=== PATIENT | male | born 1960 | race Two or more races ===

== ENCOUNTER 2024-09-27 14:35 | Inpatient (IN) | payer OTHER ==
[~2024-09-27] VITALS: Ht 172.7 cm; Wt 86.4 kg
[2024-09-27] MEDS: SODIUM CHLORIDE 0.9% 2,000 ML IV ONE (15:49)
--- NOTE | 2024-09-27 15:52 | DVH ---
EXAM: XY CHEST PORTABLE HISTORY: hypergly COMPARISON: None TECHNIQUE: Portable AP view of the chest was performed. FINDINGS: There is platelike atelectasis versus scarring in the left mid lung laterally. No other infiltrates, pneumothorax, or pulmonary edema. The heart is not enlarged. The aortic arch is calcific. There is mild thoracic degenerative disc disease. IMPRESSION: 1. No acute intrathoracic process. 2. Atherosclerotic vascular disease.
[2024-09-27 15:53] LABS: Base Excess -0.6 mmol/L (-2.0-3.0)
--- NOTE | 2024-09-27 15:57 | ED.PDOC ---
History of present illness HPI Comments 64Y M with PMHx DM and HLD presents to ED for chief complaint weakness x1day with nausea. Pt denies chest pain, SOB, vomiting, and diarrhea. Pt states he has never been prescribed insulin and has not taken his oral diabetes medications which include Metformin and glimepiride for approximately 1 year. BS upon ED arrival 500. No other symptoms reported. Chief Complaint: Hyperglycemia Time Seen by MD: 15:40 History of present illness: Nurses Notes, Medications, Allergies Allergies: Coded Allergies: NO KNOWN ALLERGIES (Unverified , 09/27/24) Information Source: Patient Mode of Arrival: Ambulatory Timing: Days Duration: Since onset Prehospital treatment: None [place]: Other Symptoms: Gen. weakness R side, Gen. weakness L side History of: Diabetes, Frequent hyperglycemic Modifying factors: Nothing Associated signs and symptoms: Other Past Medical History PAST MEDICAL HISTORY: DM, High Lipids Surgical History: Denies all surgeries Family History Family History: Unknown Social History Smoker: Non-Smoker Alcohol: Denies ETOH Use Drugs: Denies Drug Use Lives In: Home Constitutional: reports: weakness; denies: chills, diaphoresis, fatigue, fever, malaise, sweats, others EENTM: denies: blurred vision, double vision, ear bleeding, ear discharge, ear drainage, ear pain, ear ringing, eye pain, eye redness, hearing loss, mouth pain, mouth swelling, nasal discharge, nose bleeding, nose congestion, nose pain, photophobia, tearing, throat pain, throat swelling, voice changes, others Respiratory: denies: cough, hemoptysis, orthopnea, SOB at rest, shortness of breath, SOB with excertion, stridor, wheezing, others Cardiovascular: denies: chest pain, dizzy spells, diaphoresis, Dyspnea on exertion, edema, irregular heart beat, left arm pain, lightheadedness, palpitations, PND, syncope, others Gastrointestinal: reports: nausea; denies: abdomen distended, abdominal pain, blood streaked bowels, constipated, diarrhea, dysphagia, difficulty swallowing, hematemesis, melena, poor appetite, poor fluid intake, rectal bleeding, rectal pain, vomiting, others Genitourinary: denies: burning, dysuria, flank pain, frequency, hematuria, incontinence, penile discharge, penile sore, pain, testicle pain, testicle swelling, urgency, others Neurological: denies: dizziness, fainting, headache, left sided numbness, left sided weakness, numbness, paresthesia, pre-existing deficit, right sided numbness, right sided weakness, seizure, speech problems, tingling, tremors, weakness, others Musculoskeletal: denies: back pain, gout, joint pain, joint swelling, muscle pain, muscle stiffness, neck pain, others Integumetry: denies: bruises, change in color, change in hair/nails, dryness, laceration, lesions, lumps, rash, wounds, others Allergic/Immunocompromised: denies: Difficulty Healing, Frequent Infections, Hives, Itching, others Hematologic/Lymphatic: denies: anemia, blood clots, easy bleeding, easy bruising, swollen glands, others Endocrine: denies: excessive hunger, excessive sweating, excessive thirst, excessive urination, flushing, intolerance to cold, intolerance to heat, unex plained weight gain, unexplained weight loss, others Psychiatric: denies: anxiety, bipolar disorder, depression, hopeless, panic disorder, schizophrenia, sleepless, suicidal, others All Other Systems: Reviewed and Negative Physical Exam General Appearance: No Apparent Distress HEENT: Other (Pupils And face symmetric. Moist mucous membranes.) Neck: Full Range of Motion, Normal Inspection Respiratory: Lungs Clear, No Accessory Muscle Use, No Respiratory Distress, Normal Breath Sounds Cardiovascular: No Edema, No JVD, Regular Rate/Rhythm Breast Exam: Deferred Gastrointestinal: Non Tender, Soft Genitalia: Deferred Pelvic: Deferred Rectal: Deferred Extremities: Normal inspection, Normal range of motion, Non-tender, No pedal edema Neurologic: Alert (Oriented x4), Normal Affect, Normal Mood, Other (Ambulatory. No gross focal deficit.) Cerebellar Function: NOT DONE Reflexes: NOT DONE Skin: Dry, Normal Color, Warm Lymphatic: NOT DONE Was a procedure done? Was a procedure done?: No Differential Diagnosis (DM) Differential Diagnosis: DKA, Electrolyte Abnormality, Hyperglycemia, Hyperosmolar State, UTI X-Ray, Labs, Meds, VS Vital Signs Date Time Temp Pulse Resp B/P (MAP) Pulse Ox O2 Delivery O2 Flow Rate FiO2 09/27/24 15:55 98.0 92 17 138/92 (107) 97 98.0 09/27/24 15:55 92 17 97 Room Air 09/27/24 14:57 98.1 90 16 123/84 (97) 96 Lab Test 09/27/24 18:19 09/27/24 17:37 09/27/24 16:05 09/27/24 15:49 Range/Units Lactic Acid Level 1.6 2.3 *H 0.4-2.0 mmol/L Troponin I High Sensitivity < 3 L < 3 L </=54 ng/L Urine Color Light-yellow Yellow Urine Clarity Clear Clear Urine pH 5.0 5.0-9.0 Urine Specific [place] 1.037 H 1.001-1.035 Urine Protein Negative Negative Urine Ketones Negative Negative Urine Blood Negative Negative /uL Urine Nitrite Negative Negative Urine Bilirubin Negative Negative Urine Urobilinogen Normal Negative mg/dL Urine Leukocyte Esterase Negative Negative /uL Urine RBC <1 0 - 3 /hpf Urine Microscopic WBC < 1 0-3 /HPF Urine Squamous Epithelial Cells Few <5 /hpf Urine Bacteria None seen None Seen /hpf Urine Glucose 4+ H Normal mg/dL White Blood Count 7.2 4.4-10.8 10^3/uL Red Blood Count 5.98 H 4.5-5.90 10^6/uL Hemoglobin 17.2 13.5-17.5 g/dL Hematocrit 50.8 41.0-53.0 % Mean Corpuscular Volume 84.9 80.0-100.0 fL Mean Corpuscular Hemoglobin 28.7 28.0-32.0 pg Mean Corpuscular Hemoglobin Concent 33.8 32.0-36.0 g/dL Red Cell Distribution Width 14.0 11.8-14.3 % Platelet Count 244 140-450 10^3/uL Mean Platelet Volume 7.7 6.9-10.8 fL Neutrophils (%) (Auto) 76.7 37.0-80.0 % Lymphocytes (%) (Auto) 17.2 10.0-50.0 % Monocytes (%) (Auto) 4.0 0.0-12.0 % Eosinophils (%) (Auto) 1.5 0.0-7.0 % Basophils (%) (Auto) 0.6 0.0-2.0 % Neutrophils # (Auto) 5.5 1.6-8.6 10 ^3/uL Lymphocytes # (Auto) 1.2 0.4-5.4 10 ^3/uL Monocytes # (Auto) 0.3 0-1.3 10 ^3/uL Eosinophils # (Auto) 0.1 0-0.8 10 ^3/uL Basophils # (Auto) 0 0-0.2 10 ^3/uL Nucleated Red Blood Cells 0.1 % Sodium Level 132 L 136-145 mmol/L Potassium Level 5.0 3.5-5.1 mmol/L Chloride Level 96 L 98-107 mmol/L Carbon Dioxide Level 24 20-31 mmol/L Anion Gap 12 5-15 Blood Urea Nitrogen 22 9-23 mg/dL Creatinine 1.25 0.700-1.30 mg/dL Glomerular Filtration Rate Calc 64 >90 mL/min BUN/Creatinine Ratio 17.6 10.0-20.0 Serum Glucose 497 *H 74-106 mg/dL Calcium Level 10.3 8.7-10.4 mg/dL Total Bilirubin 0.5 0.2-1.0 mg/dL Aspartate Amino Transferase (AST) 14 13-40 U/L Alanine Aminotransferase (ALT) 18 7-40 U/L Alkaline Phosphatase 109 46-116 U/L B-Type Natriuretic Peptide 37.25 0-100 pg/mL Total Protein 7.3 5.7-8.2 g/dL Albumin 4.7 3.2-4.8 g/dL Beta-Hydroxybutyric Acid 0.185 < 0.4 mmol/L Test 09/27/24 15:48 09/27/24 15:41 09/27/24 15:12 09/27/24 15:10 Range/Units Blood Gas Specimen Type Arterial Blood Gas Sample Site Right radial Blood Gas Patient Temperature 37.0 Arterial Blood Date Drawn [id number] Arterial Blood pH 7.453 H 7.350-7.450 Arterial Blood Partial Pressure CO2 32.6 L 35.0-48.0 mmHg Arterial Blood Partial Pressure O2 85.1 83.0-108.0 mmHg Arterial Blood HCO3 22.3 21.0-28.0 mmol/L Arterial Blood Oxygen Saturation 96.8 94.0-98.0 % Arterial Blood Base Excess -0.6 -2.0-3.0 mmol/L Arterial Blood Oxyhemoglobin 95.7 94.0-98.0 % Arterial Blood Carboxyhemoglobin 0.7 0.5-1.5 % Arterial Blood Methemoglobin 0.4 0.0-1.5 % Florentin Test Yes Blood Gas Total Hemoglobin 17.50 13.5-17.5 g/dL Blood Gas Modality Room air FiO2 % 21.0 POC Glucose 488 *H 495 *H 500 *H 70-106 mg/dl Current Medications Medications (Trade) Dose Ordered Sig/Liliana Route Start Time Stop Time Status Last Admin Sodium Chloride 2,000 ml @ 1,000 mls/hr Q2H ONCE IV 09/27/24 15:30 09/27/24 17:29 DC 09/27/24 15:49 Insulin Human Regular (InsuLIN R) 10 units ONCE ONCE IV 09/27/24 15:30 09/27/24 15:33 DC 09/27/24 15:58 ORDERING PHYSICIAN: HIMA FLORES MD PROCEDURE(s): CXRP - CHEST PORTABLE REASON: hypergly ORDER NUMBER(s): [id number], ACCESSION NUMBER(s): [id number] EXAM: XY CHEST PORTABLE HISTORY: hypergly COMPARISON: None TECHNIQUE: Portable AP view of the chest was performed. FINDINGS: There is platelike atelectasis versus scarring in the left mid lung laterally. N o other infiltrates, pneumothorax, or pulmonary edema. The heart is not enlarged. The aortic arch is calcific. There is mild thoracic degenerative disc disease. IMPRESSION: 1. No acute intrathoracic process. 2. Atherosclerotic vascular disease. X-Ray, Labs, Meds, VS Comment 64-year-old male with a history of diabetes and dyslipidemia, noncompliant with diabetes medications for over a year, presenting with nausea, generalized weakness, and found to have elevated blood glucose Vitals remarkable for BP 138/92 Exam unremarkable Rhythm strip independently interpreted by me: Sinus rhythm, rate 90, no ectopy. Chest x-ray IMPRESSION: 1. No acute intrathoracic process. 2. Atherosclerotic vascular disease. CBC unremarkable, metabolic panel remarkable for sodium 132, chloride 96, glucose 497, lactate 2.3, down to 1.6 on repeat, troponin negative x2, beta hydroxybutyrate normal, ABG unremarkable Patient treated with the following in the ED: 1 L 0.9 normal saline IV bolus, regular insulin 10 units IV On re-evaluation, blood glucose is still elevated. Patient has no new exam changes and appears comfortable. Plan is to admit the patient for glucose control. Time of 1ST Reevaluation: 16:10 Reevaluation 1ST: Unchanged Patient Education/Counseling: Diagnosis, Treatment Family Education/Counseling: No Family Present Departure 1 Departure Time of Disposition: 21:00 Impression: Primary Impression: Hyperglycemia due to diabetes mellitus Disposition: ADMITTED INPATIENT Admit to: Med Surg Condition: Guarded Critical Care Note Critical Care Time?: No Stability Stability form required: No Heart Score Heart Score: Heart Score Response (Comments) Value History N/A 0 EKG N/A 0 Age N/A 0 Risk Factors N/A 0 Troponin N/A 0 Total 0 I personally scribed for HIMA FLORES MD ([email or web address]) on 09/27/24 at 15:57. Electronically submitted by Elizabeth Chaparro ([employer]). I personally scribed for HIMA FLORES MD ([email or web address]) on 09/27/24 at 15:57. Electronically submitted by Elizabeth Chaparro ([employer]). HIMA FLORES MD Sep 27, 2024 15:57
[2024-09-27] MEDS: InsuLIN REG 1unit/0.01ml Soln (100units/ml) IV ONE (15:58)
[2024-09-27 16:13] LABS: Basophils # (auto) 0 10 ^3/uL (0-0.2); Basophils % (auto) 0.6 % (0.0-2.0); Eosinophils # (auto) 0.1 10 ^3/uL (0-0.8); Eosinophils % (auto) 1.5 % (0.0-7.0); Hematocrit 50.8 % (41.0-53.0); Hemoglobin 17.2 g/dL (13.5-17.5); Lymphocytes # (auto) 1.2 10 ^3/uL (0.4-5.4); Lymphocytes % (auto) 17.2 % (10.0-50.0); Mean Corpuscular Hemoglobin 28.7 pg (28.0-32.0); Mean Corpuscular Hgb Conc. 33.8 g/dL (32.0-36.0); Mean Corpuscular Volume 84.9 fL (80.0-100.0); Monocytes # (auto) 0.3 10 ^3/uL (0-1.3); Neutrophils # (auto) 5.5 10 ^3/uL (1.6-8.6); Neutrophils % (auto) 76.7 % (37.0-80.0); Nucleated Red Blood Cells % 0.1 %; Platelet Count (auto) 244 10^3/uL (140-450); Red Blood Cells 5.98 10^6/uL (4.5-5.90); White Blood Cell 7.2 10^3/uL (4.4-10.8)
[2024-09-27 16:28] LABS: Alanine Aminotransferase 18 U/L (7-40); Albumin 4.7 g/dL (3.2-4.8); Alkaline Phosphatase 109 U/L (46-116); Anion Gap 12 (5-15); Aspartate Aminotransferase 14 U/L (13-40); BUN/Creatinine Ratio 17.6 (10.0-20.0); Blood Urea Nitrogen 22 mg/dL (9-23); Calcium 10.3 mg/dL (8.7-10.4); Carbon Dioxide 24 mmol/L (20-31); Total Protein 7.3 g/dL (5.7-8.2)
[2024-09-27 16:29] LABS: Bilirubin, Total 0.5 mg/dL (0.2-1.0)
[2024-09-27 16:30] LABS: Chloride 96 mmol/L (98-107); Sodium 132 mmol/L (136-145)
[2024-09-27 16:31] LABS: Glucose 497 mg/dL (74-106); Lactic Acid w/Reflex 2.3 mmol/L (0.4-2.0)
[2024-09-27 17:03] LABS: Urine Bacteria None Seen /hpf (None Seen)
[2024-09-27 17:19] LABS: Urine Blood Negative /uL (Negative); Urine Clarity Clear (Clear); Urine Color Light-Yellow (Yellow); Urine Protein, UAD Negative (Negative); Urine Specific Gravity 1.037 (1.001-1.035); Urine Squamous Epithelial Cell FEW /hpf (<5); Urine Urobilinogen Normal (Negative); Urine WBC < 1 /HPF (0-3)
[2024-09-27] MEDS ORDERED: ACETAMINOPHEN 325 MG TAB PO PRN (22:00)
[2024-09-27] MEDS ORDERED: SODIUM CHLORIDE 0.9% 1,000 ML IV SCH (22:00)
[2024-09-27] MEDS ORDERED: DEXTROSE (50%) 50ML SYRG IV PRN (22:00)
[2024-09-27] MEDS ORDERED: DOCUSATE SOD 100 MG CAP PO PRN (22:00)
[2024-09-27] MEDS ORDERED: HYDROcodone-ACET 5/325MG TAB PO PRN (22:00)
[2024-09-27] MEDS ORDERED: ONDANSETRON HCL 4 MG/2 ML VIAL IV PRN (22:00)
[2024-09-27] MEDS: ATORVASTATIN 20 MG TAB PO SCH (22:16)
[2024-09-27] MEDS ORDERED: NITROGLYCERIN 0.4 MG SL TAB SL PRN (22:30)
[2024-09-27] MEDS ORDERED: MORPHINE SULFATE INJ 2 MG/ml SYRG IV PRN (22:30)
--- NOTE | 2024-09-27 22:36 | DVHHP2 ---
History of Present Illness Reason for Visit: Hyperglycemia due to diabetes mellitus History of Present Illness The patient is a 64-year-old male with past medical history of hypertension, hyperlipidemia, and DM who presented to [facility] ED with complaint of generalized weakness. Patient reports symptoms has been persistent for the past 1 day associated with nausea. Patient was seen and evaluated in the ED, laboratory data shows WBC 7.2, platelets 244, sodium 132, potassium 5.0, BUN 22, creatinine 1.25, GFR 64, glucose 500, BNP 37.25, troponin 3, lactic acid 1.6, blood pressure 138/92, heart rate 92, temperature 98.0 F, O2 saturation 97% on room air. Chest x-ray show no acute intrathoracic process. Patient was given regular insulin 10 units IV x1, please see medication orders section in the computer. On my assessment, patient denies chest pain, no headache, no dizziness, no diaphoresis, no blurry vision, no shortness of breaths, no nausea, no vomiting, no fever, no chills. Patient was admitted for further evaluation and medical management. Past Medical History DM, High Lipids, HTN Past Surgical History Denies all surgeries Family History Reviewed, noncontributory to the management of this case. Past Social History The patient lives at home, denies smoking, alcohol or illicit drugs abuse. Review of Systems Constitutional: Yes: Weakness; No: Fever, Chills, Sweats, Malaise, Other Eyes: No: Pain, Vision change, Conjunctivae inflammation, Eyelid inflammation, Other, Redness ENT: No: Ear pain, Ear discharge, Nose pain, Nose discharge, Nose congestion, Mouth pain, Mouth swelling, Throat pain, Throat swelling, Other Respiratory: No: Cough, Dry, Shortness of breath, SOB with excertion, Wheezing, Hemoptysis, Pleuritic Pain, Sputum, Wheezing, Other Cardiovascular: No: Chest Pain, Palpitations, Orthopnea, Paroxysmal Noc. Dyspnea, Edema, Lt Headedness, Other Gastrointestinal: No: Nausea, Vomiting, Abdominal Pain, Diarrhea, Constipation, Melena, Hematochezia, Other Genitourinary: No Dysuria, No Frequency, No Incontinence, No Hematuria, No Retention, No Other Musculoskeletal: No: other, neck pain, shoulder pain, arm pain, back pain, hand pain, leg pain, foot pain Skin: No: Rash, Lesions, Jaundice, Bruising, Other Neurological: No: Weakness, Numbness, Incoordination, Change in speech, Confusion, Seizures, Other Allergies: Coded Allergies: NO KNOWN ALLERGIES (Unverified , 09/27/24) Medications Current Medications Medications Dose Ordered Sig/Liliana Route Start Time Stop Time Status Last Admin Dose Admin Hydralazine HCl 10 mg Q6HP PRN IV 09/27/24 22:00 Atorvastatin Calcium 10 mg HS PO 09/27/24 22:00 09/27/24 22:16 10 MG Aspirin 81 mg DAILY PO 09/28/24 10:00 Diagnostic Test (Pha) 1 strip IQ4HR 09/28/24 00:00 Insulin Human Regular IQ4HR SC 09/28/24 00:00 Dextrose 50 ml UD PRN IV 09/27/24 22:00 Acetaminophen/ Hydrocodone Bitart 1 tab Q4HP PRN PO 09/27/24 22:00 Ondansetron HCl 4 mg Q4HP PRN IV 09/27/24 22:00 Docusate Sodium 100 mg BIDPRN PRN PO 09/27/24 22:00 Acetaminophen 650 mg Q6HP PRN PO 09/27/24 22:00 Sodium Chloride 1,000 ml @ 120 mls/hr Q8H20M IV 09/27/24 22:15 Exam Vital Signs Vital Signs Date Time Temp Pulse Resp B/P (MAP) Pulse Ox O2 Delivery O2 Flow Rate FiO2 09/27/24 15:55 98.0 92 17 138/92 (107) 97 98.0 09/27/24 15:55 Room Air General Appearance: Alert, Oriented X3, Cooperative, No acute distress HEENT: Atraumatic, PERRLA, EOMI, Mucous membr. moist/pink Respiratory: Clear to auscultation, Normal air movement Cardiovascular: Regular rate, Normal S1, Normal S2, No murmurs Abdominal: Normal bowel sounds, Soft, No tenderness, No hepatospenomegaly, No masses Extremities: No clubbing, No cyanosis, No edema, Normal pulses, No tenderness/swelling Skin: No rashes, No breakdown, No significant lesion Neuro: Normal speech, Normal tone, Sensation intact, Cranial nerves 3-12 NL, Reflexes 2+, Other (Generalized weakness) Psych/Mental Status: Mental status NL, Mood NL Labs/Xrays Labs Test 09/27/24 22:18 09/27/24 18:19 09/27/24 17:37 09/27/24 16:05 Range/Units Lactic Acid Level 1.6 0.4-2.0 mmol/L Troponin I High Sensitivity < 3 L </=54 ng/L Urine Color Light-yellow Yellow Urine Clarity Clear Clear Urine pH 5.0 5.0-9.0 Urine Specific [place] 1.037 H 1.001-1.035 Urine Protein Negative Negative Urine Ketones Negative Negative Urine Blood Negative Negative /uL Urine Nitrite Negative Negative Urine Bilirubin Negative Negative Urine Urobilinogen Normal Negative mg/dL Urine Leukocyte Esterase Negative Negative /uL Urine RBC <1 0 - 3 /hpf Urine Microscopic WBC < 1 0-3 /HPF Urine Squamous Epithelial Cells Few <5 /hpf Urine Bacteria None seen None Seen /hpf Urine Glucose 4+ H Normal mg/dL Test 09/27/24 15:49 09/27/24 15:48 09/27/24 15:41 Range/Units White Blood Count 7.2 4.4-10.8 10^3/uL Red Blood Count 5.98 H 4.5-5.90 10^6/uL Hemoglobin 17.2 13.5-17.5 g/dL Hematocrit 50.8 41.0-53.0 % Mean Corpuscular Volume 84.9 80.0-100.0 fL Mean Corpuscular Hemoglobin 28.7 28.0-32.0 pg Mean Corpuscular Hemoglobin Concent 33.8 32.0-36.0 g/dL Red Cell Distribution Width 14.0 11.8-14.3 % Platelet Count 244 140-450 10^3/uL Mean Platelet Volume 7.7 6.9-10.8 fL Neutrophils (%) (Auto) 76.7 37.0-80.0 % Lymphocytes (%) (Auto) 17.2 10.0-50.0 % Monocytes (%) (Auto) 4.0 0.0-12.0 % Eosinophils (%) (Auto) 1.5 0.0-7.0 % Basophils (%) (Auto) 0.6 0.0-2.0 % Neutrophils # (Auto) 5.5 1.6-8.6 10 ^3/uL Lymphocytes # (Auto) 1.2 0.4-5.4 10 ^3/uL Monocytes # (Auto) 0.3 0-1.3 10 ^3/uL Eosinophils # (Auto) 0.1 0-0.8 10 ^3/uL Basophils # (Auto) 0 0-0.2 10 ^3/uL Nucleated Red Blood Cells 0.1 % Sodium Level 132 L 136-145 mmol/L Potassium Level 5.0 3.5-5.1 mmol/L Chloride Level 96 L 98-107 mmol/L Carbon Dioxide Level 24 20-31 mmol/L Anion Gap 12 5-15 Blood Urea Nitrogen 22 9-23 mg/dL Creatinine 1.25 0.700-1.30 mg/dL Glomerular Filtration Rate Calc 64 >90 mL/min BUN/Creatinine Ratio 17.6 10.0-20.0 Serum Glucose 497 *H 74-106 mg/dL Calcium Level 10.3 8.7-10.4 mg/dL Total Bilirubin 0.5 0.2-1.0 mg/dL Aspartate Amino Transferase (AST) 14 13-40 U/L Alanine Aminotransferase (ALT) 18 7-40 U/L Alkaline Phosphatase 109 46-116 U/L B-Type Natriuretic Peptide 37.25 0-100 pg/mL Total Protein 7.3 5.7-8.2 g/dL Albumin 4.7 3.2-4.8 g/dL Beta-Hydroxybutyric Acid 0.185 < 0.4 mmol/L Blood Gas Specimen Type Arterial Blood Gas Sample Site Right radial Blood Gas Patient Temperature 37.0 Arterial Blood Date Drawn [id number] Arterial Blood pH 7.453 H 7.350-7.450 Arterial Blood Partial Pressure CO2 32.6 L 35.0-48.0 mmHg Arterial Blood Partial Pressure O2 85.1 83.0-108.0 mmHg Arterial Blood HCO3 22.3 21.0-28.0 mmol/L Arterial Blood Oxygen Saturation 96.8 94.0-98.0 % Arterial Blood Base Excess -0.6 -2.0-3.0 mmol/L Arterial Blood Oxyhemoglobin 95.7 94.0-98.0 % Arterial Blood Carboxyhemoglobin 0.7 0.5-1.5 % Arterial Blood Methemoglobin 0.4 0.0-1.5 % Florentin Test Yes Blood Gas Total Hemoglobin 17.50 13.5-17.5 g/dL Blood Gas Modality Room air FiO2 % 21.0 POC Glucose 488 *H 70-106 mg/dl PATIENT: JIMMIE RENTERIA ACCT: [id number] UNIT: [id number] : 1960 LOC: ER ROOM / BED: / AGE / SEX: 64 / M ADM STATUS: REG ER SERVICE 1530 ORDERING PHYSICIAN: HIMA FLORES MD PROCEDURE(s): CXRP - CHEST PORTABLE REASON: hypergly ORDER NUMBER(s): [id number], ACCESSION NUMBER(s): [id number] EXAM: XY CHEST PORTABLE HISTORY: hypergly COMPARISON: None TECHNIQUE: Portable AP view of the chest was performed. FINDINGS: There is platelike atelectasis versus scarring in the left mid lung laterally. No other infiltrates, pneumothorax, or pulmonary edema. The heart is not enlarged. The aortic arch is calcific. There is mild thoracic degenerative disc disease. IMPRESSION: 1. No acute intrathoracic process. 2. Atherosclerotic vascular disease. Assessment/Plan Assessment/Plan Generalized weakness Hyponatremia Hyperglycemia due to diabetes mellitus Plan 1. Admit to telemetry unit 2. Breathing treatment 3. Pain control management 4. Management of fluids and electrolytes 5. Consultation for hospitalist 6. Diagnostic tests chest x-ray 7. DVT prophylaxis on SCDs 8. Repeat labs CBC, CMP in a.m. 9. Continue with current medical management 10. Treatment plan discussed with patient and RN. Patient verbalized understanding. Plan discussed with: Patient, Other (RN) My Orders Orders - SANJU FLYNN DNP Procedure Category Date Status Time Consistent DIET 09/28/24 Transmitted Carb(Ccho)Diabetes Breakfast Hydralazine Injection PHA 09/27/24 In Process (Apresoline Inject 22:00 Atorvastatin (Lipitor) PHA 09/27/24 In Process 22:00 Aspirin Tablet PHA 09/28/24 In Process 10:00 Glucose Blood PHA 09/28/24 In Process (Accu-Chek Comfort 00:00 Insulin R (Human) PHA 09/28/24 In Process (Insulin R) 00:00 Dextrose 50% Syringe PHA 09/27/24 In Process 22:00 Allergies SARAH 09/27/24 In Process 21:54 Code Status CODE 09/27/24 Transmitted 21:54 Oxygen Per Hour RT 09/27/24 Transmitted 21:54 Hydrocodone-Acet PHA 09/27/24 In Process 5/325mg Tab (Kirwin 22:00 Ondansetron Hcl PHA 09/27/24 In Process (Zofran) 22:00 Docusate Sodium PHA 09/27/24 In Process Capsule (Colace 22:00 Complete Blood Count LAB 09/28/24 Verified 04:00 Comprehensive LAB 09/28/24 Verified Metabolic Panel 04:00 Condition: Serious SARAH 09/27/24 In Process 21:54 Acetaminophen Tablet PHA 09/27/24 In Process (Tylenol Tablet) 22:00 Bedrest With Bathroom SARAH 09/27/24 In Process Privileg 21:54 Sequential SARAH 09/27/24 In Process Compression Device Hemoglobin A1c LAB 09/27/24 Logged 22:06 Sodium Chloride 0.9% PHA 09/27/24 In Process 22:15 Problem List: (1) Generalized weakness (2) Hyponatremia (3) Hyperglycemia due to diabetes mellitus Date of Service: Sep 27, 2024 Billing Provider: SANJU FLYNN DNP Common Visit Codes: [id number] INP/OBS CARE (HIGH) SANJU FLYNN DNP Sep 27, 2024 22:36
[2024-09-27] MEDS: hydrALAZINE HCL 20 MG/ML VL IV PRN (23:01)
[2024-09-27 23:06] VITALS: PULSE 75; RESP 17; O2SAT 99
[2024-09-27] MEDS: ACCU-CHEK COMFORT CURVE STRIP VI SCH (23:56)
[2024-09-28] VITALS (7 sets, daily range): BP systolic 118–164; BP diastolic 69–84; PULSE 73–95; RESP 16–18; TEMP 98–98.8; O2SAT 95–99
[2024-09-28] MEDS: InsuLIN REG 1unit/0.01ml Soln (100units/ml) SC SCH (00:03)
[2024-09-28] MEDS: SODIUM CHLORIDE 0.9% 1,000 ML IV SCH (04:50)
[2024-09-28 05:31] LABS: Basophils # (auto) 0.1 10 ^3/uL (0-0.2); Basophils % (auto) 0.8 % (0.0-2.0); Eosinophils # (auto) 0.5 10 ^3/uL (0-0.8); Eosinophils % (auto) 5.6 % (0.0-7.0); Hematocrit 46.1 % (41.0-53.0); Hemoglobin 15.4 g/dL (13.5-17.5); Lymphocytes # (auto) 2.3 10 ^3/uL (0.4-5.4); Lymphocytes % (auto) 27.3 % (10.0-50.0); Mean Corpuscular Hemoglobin 28.4 pg (28.0-32.0); Mean Corpuscular Hgb Conc. 33.5 g/dL (32.0-36.0); Mean Corpuscular Volume 84.6 fL (80.0-100.0); Monocytes # (auto) 0.5 10 ^3/uL (0-1.3); Monocytes % (auto) 6.4 % (0.0-12.0); Neutrophils % (auto) 59.9 % (37.0-80.0); Nucleated Red Blood Cells % 0.1 %; Platelet Count (auto) 247 10^3/uL (140-450); Red Blood Cells 5.44 10^6/uL (4.5-5.90); Red Cell Distribution Width 13.9 % (11.8-14.3); White Blood Cell 8.4 10^3/uL (4.4-10.8)
[2024-09-28 05:38] LABS: Alanine Aminotransferase 15 U/L (7-40); Albumin 4.3 g/dL (3.2-4.8); Alkaline Phosphatase 84 U/L (46-116); Anion Gap 11 (5-15); BUN/Creatinine Ratio 23.7 (10.0-20.0); Bilirubin, Total 0.4 mg/dL (0.2-1.0); Blood Urea Nitrogen 23 mg/dL (9-23); Calcium 9.5 mg/dL (8.7-10.4); Carbon Dioxide 22 mmol/L (20-31); Chloride 102 mmol/L (98-107); Potassium 3.7 mmol/L (3.5-5.1); Total Protein 6.7 g/dL (5.7-8.2)
[2024-09-28 05:47] LABS: Aspartate Aminotransferase 11 U/L (13-40); Glucose 253 mg/dL (74-106); Sodium 135 mmol/L (136-145)
[2024-09-28] MEDS: ASPirin 81 mg TAB PO SCH (08:24)
[2024-09-28] MEDS ORDERED: METF-489 PO (16:46)
[2024-09-28] MEDS ORDERED: INSUINJ37 SC (16:46)
[2024-09-28] MEDS ORDERED: EMPA1TAB PO (16:46)
--- NOTE | 2024-09-28 16:52 | DVHDS2 ---
Discharge Summary Date of Admission Sep 27, 2024 at 22:18 Date of Discharge: Sep 28, 2024 Labs/Diagnostic Data: Laboratory Results Test 09/28/24 11:44 09/28/24 04:34 09/27/24 22:18 09/27/24 18:19 POC Glucose 258 mg/dl (70-106) White Blood Count 8.4 10^3/uL (4.4-10.8) Red Blood Count 5.44 10^6/uL (4.5-5.90) Hemoglobin 15.4 g/dL (13.5-17.5) Hematocrit 46.1 % (41.0-53.0) Mean Corpuscular Volume 84.6 fL (80.0-100.0) Mean Corpuscular Hemoglobin 28.4 pg (28.0-32.0) Mean Corpuscular Hemoglobin Concent 33.5 g/dL (32.0-36.0) Red Cell Distribution Width 13.9 % (11.8-14.3) Platelet Count 247 10^3/uL (140-450) Mean Platelet Volume 7.7 fL (6.9-10.8) Neutrophils (%) (Auto) 59.9 % (37.0-80.0) Lymphocytes (%) (Auto) 27.3 % (10.0-50.0) Monocytes (%) (Auto) 6.4 % (0.0-12.0) Eosinophils (%) (Auto) 5.6 % (0.0-7.0) Basophils (%) (Auto) 0.8 % (0.0-2.0) Neutrophils # (Auto) 5.0 10 ^3/uL (1.6-8.6) Lymphocytes # (Auto) 2.3 10 ^3/uL (0.4-5.4) Monocytes # (Auto) 0.5 10 ^3/uL (0-1.3) Eosinophils # (Auto) 0.5 10 ^3/uL (0-0.8) Basophils # (Auto) 0.1 10 ^3/uL (0-0.2) Nucleated Red Blood Cells 0.1 % Sodium Level 135 mmol/L (136-145) Potassium Level 3.7 mmol/L (3.5-5.1) Chloride Level 102 mmol/L (98-107) Carbon Dioxide Level 22 mmol/L (20-31) Anion Gap 11 (5-15) Blood Urea Nitrogen 23 mg/dL (9-23) Creatinine 0.97 mg/dL (0.700-1.30) Glomerular Filtration Rate Calc 87 mL/min (>90) BUN/Creatinine Ratio 23.7 (10.0-20.0) Serum Glucose 253 mg/dL (74-106) Calcium Level 9.5 mg/dL (8.7-10.4) Total Bilirubin 0.4 mg/dL (0.2-1.0) Aspartate Amino Transferase (AST) 11 U/L (13-40) Alanine Aminotransferase (ALT) 15 U/L (7-40) Alkaline Phosphatase 84 U/L (46-116) Total Protein 6.7 g/dL (5.7-8.2) Albumin 4.3 g/dL (3.2-4.8) Hemoglobin A1c > 14.0 % A1C (<5.7) Lactic Acid Level 1.6 mmol/L (0.4-2.0) Test 09/27/24 17:37 09/27/24 16:05 09/27/24 15:49 09/27/24 15:48 Troponin I High Sensitivity < 3 ng/L (</=54) Urine Color Light-yellow (Yellow) Urine Clarity Clear (Clear) Urine pH 5.0 (5.0-9.0) Urine Specific [place] 1.037 (1.001-1.035) Urine Protein Negative (Negative) Urine Ketones Negative (Negative) Urine Blood Negative /uL (Negative) Urine Nitrite Negative (Negative) Urine Bilirubin Negative (Negative) Urine Urobilinogen Normal mg/dL (Negative) Urine Leukocyte Esterase Negative /uL (Negative) Urine RBC <1 /hpf (0 - 3) Urine Microscopic WBC < 1 /HPF (0-3) Urine Squamous Epithelial Cells Few /hpf (<5) Urine Bacteria None seen /hpf (None Seen) Urine Glucose 4+ mg/dL (Normal) B-Type Natriuretic Peptide 37.25 pg/mL (0-100) Beta-Hydroxybutyric Acid 0.185 mmol/L (< 0.4) Blood Gas Specimen Type Arterial Blood Gas Sample Site Right radial Blood Gas Patient Temperature 37.0 Arterial Blood Date Drawn [id number] Arterial Blood pH 7.453 (7.350-7.450) Arterial Blood Partial Pressure CO2 32.6 mmHg (35.0-48.0) Arterial Blood Partial Pressure O2 85.1 mmHg (83.0-108.0) Arterial Blood HCO3 22.3 mmol/L (21.0-28.0) Arterial Blood Oxygen Saturation 96.8 % (94.0-98.0) Arterial Blood Base Excess -0.6 mmol/L (-2.0-3.0) Arterial Blood Oxyhemoglobin 95.7 % (94.0-98.0) Arterial Blood Carboxyhemoglobin 0.7 % (0.5-1.5) Arterial Blood Methemoglobin 0.4 % (0.0-1.5) Florentin Test Yes Blood Gas Total Hemoglobin 17.50 g/dL (13.5-17.5) Blood Gas Modality Room air FiO2 % 21.0 Other Laboratory Tests 09/28/24 04:34 Brief Hx & Hospital Course: HPI: 64-year-old male with past medical history of hypertension, hyperlipidemia, and DM who presented to [facility] ED with complaint of generalized weakness. Patient reports symptoms has been persistent for the past 1 day associated with nausea. Summary: Patient presenting with nausea and vomiting, blood glucose elevated on admit labs at 500, BNP WNL, troponins negative X 2, beta hydroxy negative, lactic acidosis at 2.3, anion gap 12 normal, bicarb 24 normal, creatinine 1.25 with SOSA concern, UA SG 1.037 elevated, glucosuria 4+, blood culture negative x2,. ABGs done showing pH of 7.4, no acidemia noted. DKA ruled out CXR without any significant finding but showing some arterial calcifications concerning for vascular disease. Vital signs on admit showing hypotensive up to 181/90. She was admitted for intractable nausea and hypertensive urgency. In ED patient was given IV fluid bolus, IV insulin 10 units, hydralazine IV, started on aggressive sliding scale insulin, pain control, antiemetics,. With initial control patient's stabilizes blood glucose and blood pressure and nausea resolves. Plan made to discharge patient with resumption of metformin and addition of basal insulin with further orals. Vital signs stable plan made to discharge patient as below. diagnosis: Intractable nausea due to hyperglycemia uncontrolled DM with hyperglycemia Hypertensive urgency DKA ruled out Intravascular volume depletion due to his osmotic hyperglycemic diuresis SOSA due to VMN Peripheral vascular disease, aortic calcifications discharge plan: - start metformin ER 500 mg twice daily - Start Jardiance 10 mg daily - start lisinopril 5 mg daily - Use Lantus Solostar insulin pen 10 units nightly - hydrate well - Diabetic diet - Use diabetic supplies to measure glucose log fasting and pre meal (pre lunch or pre dinner) - if insulin less than 70 at any point, take orange juice or glucose staff to avoid hypoglycemia - Follow up with PCP. PCP to repeat BMP to follow up on creatinine SOSA Condition at Discharge: Fair Final Diagnosis/Problems List Intractable nausea due to hyperglycemia uncontrolled DM with hyperglycemia Hypertensive urgency DKA ruled out Intravascular volume depletion due to his osmotic hyperglycemic diuresis SOSA due to VMN Peripheral vascular disease, aortic calcifications Discharge Disposition: Home Discharge Instruct/Medications Diet: Consistent carbohydrate Activity: No Restrictions, As Tolerated Follow Up/Referral: pcp Medications: below Discharge Statement: "Patient was advised to return to the ER or call 911 if any headaches, dizziness, shortness of breath, chest pain, abdominal pain, bleeding, fevers, or worsening of medical condition. Patient was counseled about treatment plan, medications, possible side effects, patientverbalized understanding. All questions were answered to the best of my ability. This discharge took greater then 30 minutes in planning, reviewing documentation, counseling the patient, and discussing with other team members." Date of Service: Sep 28, 2024 Billing Provider: MIKAELA BRIONES MD Common Visit Codes: 83862-BKB/OBS DISCH DAY >30min MIKAELA BRIONES MD Sep 28, 2024 16:52
[2024-09-28] MEDS ORDERED: GLUC-224 VI (17:09)
[2024-09-28] MEDS ORDERED: BLOO-169 XX (17:09)
[2024-09-28] MEDS ORDERED: LANC28MI39 XX (17:09)
[2024-09-28] MEDS ORDERED: LISI-275 PO (22:35)
[2024-09-28] MEDS: SODIUM CHLORIDE 0.9% 1,000 ML IV ONE (22:45)
[2024-09-29 00:46] VITALS: BP 147/92; PULSE 86; RESP 16; TEMP 98.6; O2SAT 97
[2024-09-29 04:58] VITALS: BP 136/79; PULSE 87; RESP 16; TEMP 98.3; O2SAT 97
[2024-09-29 06:24] LABS: Chloride 102 mmol/L (98-107); Sodium 137 mmol/L (136-145)
[2024-09-29 06:25] LABS: Anion Gap 11 (5-15); Carbon Dioxide 24 mmol/L (20-31)
[2024-09-29 06:26] LABS: Calcium 9.6 mg/dL (8.7-10.4)
[2024-09-29 06:30] LABS: BUN/Creatinine Ratio 16.1 (10.0-20.0); Blood Urea Nitrogen 14 mg/dL (9-23)
[2024-09-29 06:34] LABS: Glucose 160 mg/dL (74-106); Potassium 3.4 mmol/L (3.5-5.1)
[2024-09-29 08:44] VITALS: BP 155/97; PULSE 89; RESP 17; TEMP 98.6; O2SAT 97
[2024-09-29] MEDS: LISINOPRIL 5 MG TAB PO SCH (08:56)
[2024-09-29 11:37] VITALS: BP 146/78; PULSE 61; RESP 18; TEMP 98.3; O2SAT 98
[2024-09-29] MEDS ORDERED: [UNRECOGNIZED DRUG - CODE] XX (15:00)
[2024-09-29] MEDS ORDERED: SITA25TA3 PO (15:00)
[2024-09-29] MEDS ORDERED: CONT1KIT21 XX (15:00)
[2024-09-29] MEDS ORDERED: LANC-347 XX (15:00)
[2024-09-29] MEDS ORDERED: ALCO1PAD13 XX (15:00)
[2024-09-29] MEDS ORDERED: GLUC-145 VI (15:00)
--- NOTE | 2024-09-29 16:46 | DVHPN2 ---
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 Ready for discharge see discharge summary 09/28/2024 Reviewed: H&P Changes from previous H/P or p: No Changes General: Per HPI Eyes: No Pain, No Vision change, No Conjunctivae inflammation, No Eyelid inflammation, No Other, No Redness ENT: No Ear pain, No Ear discharge, No Nose pain, No Nose discharge, No Nose congestion, No Mouth pain, No Mouth swelling, No Throat pain, No Throat swelling, No Other Cardiovascular: No Chest Pain, No Palpitations, No Orthopnea, No Paroxysmal Noc. Dyspnea, No Edema, No Lt Headedness, No Other Respiratory: No Cough, No Dry, No Shortness of breath, No SOB with excertion, No Wheezing, No Hemoptysis, No Pleuritic Pain, No Sputum, No Other Gastrointestinal: No Nausea, No Vomiting, No Abdominal Pain, No Diarrhea, No Constipation, No Melena, No Hematochezia, No Other Genitourinary: No Dysuria, No Frequency, No Incontinence, No Hematuria, No Retention, No Other Musculoskeletal: No other, No neck pain, No shoulder pain, No arm pain, No back pain, No hand pain, No leg pain, No foot pain Skin: No Rash, No Lesions, No Jaundice, No Bruising, No Other Objective Vitals Vital Signs Date Time Temp Pulse Resp B/P (MAP) Pulse Ox O2 Delivery O2 Flow Rate FiO2 09/29/24 11:37 98.3 61 18 98 09/29/24 08:56 155/97 09/28/24 01:11 Room Air* 0 21 Intake/Output Intake and Output 09/29/24 07:00 Intake Total 480 ml Balance 480 ml Intake IV Total 480 ml Exam GEN: Healthy appearing, well-developed, NAD. HEENT: NC/AT; MMM. CV: RRR, no m/r/g. LUNGS: CTAB, no w/r/c. ABD: Soft, NT/ND, NBS, no masses or organomegaly. EXT: skin Warm, well perfused. no rashes. No clubbing, cyanosis, or edema. NEURO: Ambulating with no limitations. No focal deficits. Laboratory Results Laboratory Tests 09/28/24 04:34 09/29/24 04:57 Chemistry Test 09/29/24 04:57 Calcium Level 9.6 mg/dL (8.7-10.4) Urinalysis Test 09/27/24 16:05 Urine Color Light-yellow (Yellow) Urine Clarity Clear (Clear) Urine pH 5.0 (5.0-9.0) Urine Specific [place] 1.037 (1.001-1.035) Urine Protein Negative (Negative) Urine Ketones Negative (Negative) Urine Blood Negative /uL (Negative) Urine Nitrite Negative (Negative) Urine Bilirubin Negative (Negative) Urine Urobilinogen Normal mg/dL (Negative) Urine Leukocyte Esterase Negative /uL (Negative) Urine RBC <1 /hpf (0 - 3) Urine Microscopic WBC < 1 /HPF (0-3) Urine Squamous Epithelial Cells Few /hpf (<5) Urine Bacteria None seen /hpf (None Seen) Urine Glucose 4+ mg/dL (Normal) H Microbiology Microbiology Date/Time Source Procedure Growth Status 09/27/24 15:56 Blood Blood Culture - Preliminary NO GROWTH AFTER 48 HOURS OF INCUBATION. 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 Ready for discharge see discharge summary 09/28/2024 diagnosis: Intractable nausea due to hyperglycemia uncontrolled DM with hyperglycemia Hypertensive urgency DKA ruled out Intravascular volume depletion due to his osmotic hyperglycemic diuresis SOSA due to VMN Peripheral vascular disease, aortic calcifications discharge plan: - start metformin ER 500 mg twice daily - Start Jardiance 10 mg daily - start lisinopril 5 mg daily - Use Lantus Solostar insulin pen 10 units nightly - hydrate well - Diabetic diet - Use diabetic supplies to measure glucose log fasting and pre meal (pre lunch or pre dinner) - if insulin less than 70 at any point, take orange juice or glucose staff to avoid hypoglycemia - Follow up with PCP. PCP to repeat BMP to follow up on creatinine SOSA Plan discussed with: Patient My Orders Orders - MIKAELA BRIONES MD Procedure Category Date Status Time Discharge DISCHARGE 09/28/24 Transmitted 16:47 Date of Service: Sep 29, 2024 Billing Provider: MIKAELA BRIONES MD Common Visit Codes: [id number] INP/OBS CARE(MOD) MIKAELA BRIONES MD Sep 29, 2024 16:46
== END 2024-09-29 11:45 | disposition home or self-care (01) | DRG 637 ==
LOC: ER 14:35 → OVERFLOW 22:18
PROVIDERS: ADMIT Student in an Organized Health Care Education/Training Program; ATTEND Student in an Organized Health Care Education/Training Program
DX: E11.65 Type 2 diabetes mellitus with hyperglycemia (principal); N17.0 Acute kidney failure with tubular necrosis; I16.0 Hypertensive urgency; E86.9 Volume depletion, unspecified; E78.5 Hyperlipidemia, unspecified; I10 Essential (primary) hypertension; E11.51 Type 2 diabetes mellitus with diabetic peripheral angiopathy without gangrene; I95.9 Hypotension, unspecified; Z79.4 Long term (current) use of insulin; Z79.899 Other long term (current) drug therapy
CPT/HCPCS: 36415; 36600; 71045; 80048; 80053; 81001; 82010; 82805; 82962; 83036; 83605; 83880; 84484; 85025; 87040; 96361; 96374; G0378; J1815

== ENCOUNTER → 2024-12-23 | Outpatient (CLI) | payer OTHER ==
[~2024-12-23] MED LIST: ALCO1PAD13 XX; BLOO-169 XX; CONT1KIT21 XX; EMPA1TAB PO; GLUC-145 VI; GLUC-224 VI; INSUINJ37 SC; LANC-347 XX; LANC28MI39 XX; LISI-275 PO; METF-489 PO; SITA25TA3 PO; [UNRECOGNIZED DRUG - CODE] XX
[2024-12-23 09:19] LABS: Basophils # (auto) 0.1 10 ^3/uL (0-0.2); Basophils % (auto) 1.1 % (0.0-2.0); Eosinophils # (auto) 0.3 10 ^3/uL (0-0.8); Eosinophils % (auto) 5.7 % (0.0-7.0); Hematocrit 44.3 % (41.0-53.0); Hemoglobin 14.8 g/dL (13.5-17.5); Lymphocytes # (auto) 1.8 10 ^3/uL (0.4-5.4); Lymphocytes % (auto) 34.5 % (10.0-50.0); Mean Corpuscular Hemoglobin 28.6 pg (28.0-32.0); Mean Corpuscular Hgb Conc. 33.4 g/dL (32.0-36.0); Mean Corpuscular Volume 85.8 fL (80.0-100.0); Monocytes # (auto) 0.3 10 ^3/uL (0-1.3); Monocytes % (auto) 6.6 % (0.0-12.0); Neutrophils # (auto) 2.7 10 ^3/uL (1.6-8.6); Neutrophils % (auto) 52.1 % (37.0-80.0); Nucleated Red Blood Cells % 0.1 %; Platelet Count (auto) 227 10^3/uL (140-450); Red Blood Cells 5.16 10^6/uL (4.5-5.90); Red Cell Distribution Width 15.3 % (11.8-14.3); White Blood Cell 5.2 10^3/uL (4.4-10.8)
[2024-12-23 09:23] LABS: Urine Blood Negative /uL (Negative); Urine Clarity Clear (Clear); Urine Color Yellow (Yellow); Urine Protein, UAD Negative (Negative); Urine Specific Gravity 1.025 (1.001-1.035); Urine Urobilinogen Normal (Negative); Urine pH 5.5 (5.0-9.0)
[2024-12-23 09:32] LABS: Triglycerides 54 mg/dL (< 150)
[2024-12-23 09:33] LABS: LDL Cholesterol 88 mg/dL (< 100)
[2024-12-23 09:34] LABS: Cholesterol 136 mg/dL (< 200); HDL Cholesterol 42 mg/dL (40-59)
[2024-12-23 09:47] LABS: Amphetamine Screen, Urine Neg (NEGATIVE); Barbiturate Scree,Urine Neg (NEGATIVE); Benzodiazephine Screen, Urine Neg (NEGATIVE); Cannabinoid Screen, Urine Neg (NEGATIVE); Cocaine Screen, Urine Neg (NEGATIVE); Opiate Scree,Urine Neg (NEGATIVE); Phencyclidine Screen, Urine Neg (NEGATIVE)
[2024-12-23 10:54] LABS: Folate (Folic Acid) 29.33 ng/mL (>5.38)
[2024-12-24 10:37] LABS: Hepatitis B Core Total AB Negative (Negative)
[2024-12-24 12:20] LABS: Hepatitis A Ab IgM Negative; Hepatitis A Total Antibody Negative (Negative); Hepatitis B Surface Antibody Negative (Negative); Hepatitis B Surface Antigen Negative (Negative); Hepatitis C Antibody Negative (Negative)
== END | disposition home or self-care (01) ==
LOC: LAB 08:41
PROVIDERS: ATTEND Internal Medicine
DX: E11.65 Type 2 diabetes mellitus with hyperglycemia (principal)
CPT/HCPCS: 36415; 80061; 80307; 81003; 82043; 82274; 82306; 82607; 82746; 83036; 84443; 85025; 86703; 86704; 86706; 86708; 86709; 86803; 87340